=== PATIENT | male | born 1930 | race Caucasian/White ===

== ENCOUNTER 2018-03-10 08:34 | Inpatient (IN) ==
--- NOTE | 2018-03-10 09:14 | ED ---
HPI General Chief Complaint: Fall Stated Complaint: Evac/fall Time Seen by Provider: 03/10/18 08:56 Source: patient, EMS and RN notes reviewed Mode of arrival: EMS Limitations: other (poor historian) History of Present Illness HPI Narrative: 87 y/o male presents after he had a trip and fall on a curb when he was trying to go to [facility] for blood work for dizzy spells with black stools. He states he is on Eliquis but is not sure why he is on it. He states today he did fall and hit his head but he did not black out. He notes a cut to the top of his head. He denies other pain from the fall. He denies any active dizziness at this moment but does note that he has been having black stools. Quality pain is throbbing. Severity is moderate. Pain is worse with movement. He denies other modifying factors. He states his doctor sent him to get the workup. Related Data Home Medications Medication Instructions Recorded Confirmed Advair Diskus 250 mcg PO BID 03/10/18 03/10/18 Areds 2 tab PO BID 03/10/18 Brogan Thyroid 120 mg PO DAILY 03/10/18 03/10/18 Eliquis 2.5 mg PO BID 03/10/18 03/10/18 Glucosamine Chondroitin PLUS 1,500 mg PO BID 03/10/18 03/10/18 Klor-Con 10 meq PO HS 03/10/18 03/10/18 Vitamin B-12 2,500 mcg PO DAILY 03/10/18 03/10/18 Vitamin D3 2,000 mcg PO DAILY 03/10/18 03/10/18 atorvastatin 40 mg PO HS 03/10/18 03/10/18 fish [id number]-vit C-vit E 1,200 mg PO DAILY 03/10/18 03/10/18 fluoxetine 20 mg PO HS 03/10/18 03/10/18 furosemide 40 mg PO DAILY 03/10/18 03/10/18 metformin 500 mg PO BID 03/10/18 03/10/18 montelukast 10 mg PO HS 03/10/18 03/10/18 Allergies Allergy/AdvReac Type Severity Reaction Status Date / Time adhesive Allergy Severe RASH Unverified 03/10/18 09:29 bee venom protein (honey bee) Allergy Severe Anaphylaxis Unverified 03/10/18 09: 29 Review of Systems ROS: all other systems reviewed are negative PMFSH History History Provided By: Patient (States he has a lot of medical history but he does not know at all. He will have his friend get his medication list) Medical History Medical History History of COPD (Acute) History of asthma (Acute) History of hypothyroidism (Acute) Hx of chronic congestive heart failure (Acute) Hx of diabetes mellitus (Acute) Hx of hyperlipidemia (Acute) Hx of primary hypertension (Acute) Surgical History Surgical History Hx of heart surgery (Acute) Social History Social History Substance History: No History of Abuse Second Hand Smoke Exposure: No Smoking Status: Former smoker How Often Do You Have a Drink Containing Alcohol: Never Exam Narrative Exam Narrative: GENERAL: 87 y/o male in no apparent distress SKIN: Focused skin assessment warm/dry. HEAD: laceration noted to right forehead laterally, Normocephalic. EYES: Pupils equal and round. No scleral icterus. No injection or drainage. ENT: No nasal bleeding or discharge. Mucous membranes pink and moist. NECK: Trachea midline. No JVD. c-collar placed CARDIOVASCULAR: irregular rate and rhythm. RESPIRATORY: No accessory muscle use. Clear to auscultation. Breath sounds equal bilaterally. GASTROINTESTINAL: Abdomen soft, non-tender, nondistended. MUSCULOSKELETAL: No obvious deformities. No clubbing. No cyanosis. mild edema bilaterally. Abrasion to right knee without tenderness, abrasion to right elbow with small amount of pain otherwise no pain noted to extremities NEUROLOGICAL: Awake. Motor grossly within normal limits. Normal speech. RECTAL EXAM: Performed with credit union teller and after permission. No external hemorrhoid or fissure, stool is dark green, non-bloody. PSYCHIATRIC: Appropriate mood and affect; insight and judgment normal. Procedures Hemaprompt Stool Procedural Steps Taken: specimen placed in appropriate test area, developer placed on specimen and control areas and controls appropriately positive and negative Hemaprompt Stool Result: positive Laceration Laceration 1: Site: face Side (If applicable): right Description: linear Depth: simple, single layer Anesthetic used: lidocaine 2% and with epi Anesthesia technique:: local infiltration Amount (mL): 2 Pre-repair:: wound explored, irrigated extensively, deep structures intact and extensive debridement Skin layer closed with: prolene Size (cm): 4-0 Number of sutures:: 3 Technique:: simple, interrupted Course Reevaluation(s) Reevaluation #1: Patient's hemoglobin is 7.1. Given bleeding and symptomatic will start with 1 unit of blood to be given and will admit to the hospital for further care. Laceration to be repaired Reevaluation #2: Patient updated and agrees to admission Consultations Consultation #1: terrence with dr rojas agrees to admit Initial Documented Vital Signs Temperature 98.6 F 03/10/18 09:30 Pulse Rate 63 03/10/18 09:30 Respiratory Rate 16 03/10/18 09:30 Blood Pressure 138/49 L 03/10/18 09:30 Pulse Oximetry 97 03/10/18 09:30 Last Documented Vital Signs Temperature 98.6 F 03/10/18 09:30 Pulse Rate 63 03/10/18 09:30 Respiratory Rate 16 03/10/18 09:30 Blood Pressure 138/49 L 03/10/18 09:30 Pulse Oximetry 97 03/10/18 09:30 Medical Decision Making MDM Narrative Medical decision making narrative: We will check blood work, trauma imaging and reevaluate. Patient will likely need admission for GI bleed Medical Screen Exam Complete: Yes Emergency Medical Condition: Yes Differential Diagnosis Differential Diagnosis: Anemia, renal failure, fracture, bleed Lab Data Lab results reviewed: Yes I reviewed the patient's lab results. Result diagrams: 03/10/18 09:50 03/10/18 09:50 Lab Results 03/10/18 03/10/18 03/10/18 Range/Units 09:50 09:50 09:50 CBC w Diff Slide review pending WBC 8.8 (4.0-11.0) th/mm3 RBC 2.26 L (4.50-5.90) mil/mm3 Hgb 7.1 L (13.0-17.0) gm/dL Hct 22.5 L (39.0-51.0) % MCV 99.2 (80.0-100.0) fL MCH 31.5 (27.0-34.0) pg MCHC 31.8 L (32.0-36.0) % RDW 22.8 H (11.6-17.2) % Plt Count 207 (150-450) th/mm3 MPV 7.3 (7.0-11.0) fL Neut % (Auto) 81.6 H (16.0-70.0) % Lymph % (Auto) 9.3 (9.0-44.0) % Storey % (Auto) 6.6 (0.0-8.0) % Eos % (Auto) 1.9 (0.0-4.0) % Baso % (Auto) 0.6 (0.0-2.0) % Neut # (Auto) 7.1 (1.8-7.7) th/mm3 Lymph # (Auto) 0.8 L (1.0-4.8) th/mm3 Storey # (Auto) 0.6 (0.0-0.9) th/mm3 Eos # (Auto) 0.2 (0.0-0.4) th/mm3 Baso # (Auto) 0.1 (0.0-0.2) th/mm3 Differential Comment . PT 11.8 H (9.8-11.6) sec INR 1.2 Ratio APTT 27.2 (23.4-31.7) sec Sodium 141 (136-145) meq/L Potassium 4.2 (3.5-5.1) meq/L Chloride 110 H (98-107) meq/L Carbon Dioxide 23.7 (21.0-32.0) meq/L Anion Gap 7 (5-15) meq/L BUN 36 H (7-18) mg/dL Creatinine 1.60 H (0.60-1.30) mg/dL Estimated GFR 41 L (>89) mL/min Random Glucose 132 H (74-106) mg/dL Calcium 7.8 L (8.5-10.1) mg/dL Magnesium 2.5 (1.5-2.5) mg/dL Total Bilirubin 1.7 H (0.2-1.0) mg/dL AST 20 (15-37) U/L ALT 23 (12-78) U/L Alkaline Phosphatase 59 (45-117) U/L Total Protein 6.3 L (6.4-8.2) g/dL Albumin 2.9 L (3.4-5.0) g/dL Imaging Data Attestation: I personally reviewed and interpreted this imaging study as follows : Radiologist's impression: Chest X-Ray 03/10/18 09:06 CONCLUSION: No acute disease Cervical Spine CT 03/10/18 09:07 CONCLUSION: 1. No fracture or subluxation Head CT 03/10/18 09:07 CONCLUSION: No acute intracranial findings . Pelvis X-Ray 03/10/18 09:07 CONCLUSION: No definite acute bony injury Elbow X-Ray 03/10/18 09:15 CONCLUSION: 1. No acute fracture, dislocation or elbow joint effusion. 2. Olecranon spurring. 3. Degenerative changes involving the right elbow joint. Discharge Plan Discharge Disposition Patient Disposition: ED Admit(ED Internal Use Only) Discharge Order Discharge Orders: ED Use Only Admit Order (Routine); Ordered 03/10/18 Ordered By: Lizzie Alatorre Discharge Details Diagnosis: Acute GI bleeding, Fall, Facial laceration Physicians Team ED Provider: Lizzie Alatorre Primary Care Provider: Raudel Rojas Attending Provider: Raudel Rojas Status ED Status: Admitted Patient
--- NOTE | 2018-03-10 09:56 | CT ---
EXAM DATE: 03/10/2018 9:47 AM EST AGE/SEX: 87 years / Male INDICATIONS: Trauma. Tripped and fell and hit head. Laceration to right forehead. CLINICAL DATA: This is the patient's initial encounter. Patient reports that signs and symptoms have been present for 1 day and indicates a pain score of 2/10. MEDICAL/SURGICAL HISTORY: None. None. RADIATION DOSE: 26.63 CTDI (mGy) COMPARISON: No prior exams available for comparison. TECHNIQUE: Contiguous axial images were obtained using helical multirow detector technique. The vol umetric data was post-processed with multiplanar reconstruction in oblique axial, sagittal, and coron al planes. Using automated exposure control and adjustment of the mA and/or kV according to patient s ize, radiation dose was kept as low as reasonably achievable to obtain optimal diagnostic quality juan ges. DICOM format image data is available electronically for review and comparison. FINDINGS: Vertebrae: Normal vertebral body height. Multilevel degenerative changes. Bridging anterior endplate osteophytes C3-C7. Alignment: Normal. No subluxation. C2-3: The bony spinal canal is normal in size. No evidence of disc bulge or herniation. The neural foramina are bilaterally patent. C3-4: The bony spinal canal is normal in size. No evidence of disc bulge or herniation. Right neura l foramen patent. Uncovertebral spurring causes moderate narrowing left neural foramen.. C4-5: Small generalized posterior disc osteophyte complex without canal stenosis. The neural forami na are bilaterally patent. C5-6: Small generalized posterior disc osteophyte complex without canal stenosis. The neural forami na are bilaterally patent. C6-7: The bony spinal canal is normal in size. No evidence of disc bulge or herniation. The neural foramina are bilaterally patent. C7-T1: The bony spinal canal is normal in size. No evidence of disc bulge or herniation. The neura l foramina are bilaterally patent. CONCLUSION: 1. No fracture or subluxation Electronically signed by: Leonid Stevens MD Board Certified Radiologist 03/10/2018 9:55 AM EST
--- NOTE | 2018-03-10 09:57 | CT ---
EXAM DATE: 03/10/2018 9:44 AM EST AGE/SEX: 87 years / Male INDICATIONS: Trauma. Tripped and fell and hit head. Laceration to right forehead. CLINICAL DATA: This is the patient's initial encounter. Patient reports that signs and symptoms have been present for 1 day and indicates a pain score of 5/10. MEDICAL/SURGICAL HISTORY: None. None. RADIATION DOSE: 63.93 CTDI (mGy) COMPARISON: No prior exams available for comparison. TECHNIQUE: CT of the head without contrast. Using automated exposure control and adjustment of the mA and/or kV according to patient size, radiation dose was kept as low as reasonably achievable to ob tain optimal diagnostic quality images. DICOM format image data is available electronically for revi ew and comparison. FINDINGS: Cerebrum: The ventricles are normal for age. No evidence of midline shift, mass lesion, hemorrhage or acute infarction. No extraaxial fluid collections are seen. Posterior Fossa: The cerebellum and brainstem are intact. The 4th ventricle is midline. The cerebe llopontine angle is unremarkable. Extracranial: The visualized portion of the orbits is intact. Skull: The calvaria is intact. No evidence of skull fracture. CONCLUSION: No acute intracranial findings . Electronically signed by: Yaniv Byers MD Board Certified Radiologist 03/10/2018 9:55 AM EST
[2018-03-10 10:15] LABS: Baso # (Auto) 0.1 th/mm3 (0.0-0.2); Baso % (Auto) 0.6 % (0.0-2.0); Eos # (Auto) 0.2 th/mm3 (0.0-0.4); Eos % (Auto) 1.9 % (0.0-4.0); Hematocrit 22.5 % (39.0-51.0); Hemoglobin 7.1 gm/dL (13.0-17.0); Lymph # (Auto) 0.8 th/mm3 (1.0-4.8); Lymph % (Auto) 9.3 % (9.0-44.0); Mean Corpuscular HGB Conc 31.8 % (32.0-36.0); Mean Corpuscular Hemoglobin 31.5 pg (27.0-34.0); Mean Corpuscular Volume 99.2 fL (80.0-100.0); Mean Platelet Volume 7.3 fL (7.0-11.0); Mono # (Auto) 0.6 th/mm3 (0.0-0.9); Mono % (Auto) 6.6 % (0.0-8.0); Neut # (Auto) 7.1 th/mm3 (1.8-7.7); Neut % (Auto) 81.6 % (16.0-70.0); Platelet Count 207 th/mm3 (150-450); Red Blood Count 2.26 mil/mm3 (4.50-5.90); Red Cell Distribution Width 22.8 % (11.6-17.2); White Blood Count 8.8 th/mm3 (4.0-11.0)
--- NOTE | 2018-03-10 10:15 | XR ---
EXAM DATE: 03/10/2018 10:11 AM EST AGE/SEX: 87 years / Male INDICATIONS: Fall, chest pain. CLINICAL DATA: This is the patient's initial encounter. Patient reports that signs and symptoms have been present for 1 day and indicates a pain score of 1/10. MEDICAL/SURGICAL HISTORY: None. CABG. COMPARISON: POI, XR CHEST PA AND LAT, 09/20/2017. . FINDINGS: A single AP view of the chest demonstrates the lungs to be symmetrically aerated without evidence of mass, infiltrate or effusion. The cardiomediastinal contours are unremarkable. Osseous structures a re intact. CONCLUSION: No acute disease Electronically signed by: Yaniv Byers MD Board Certified Radiologist 03/10/2018 10:14 AM EST
--- NOTE | 2018-03-10 10:16 | XR ---
EXAM DATE: 03/10/2018 10:12 AM EST AGE/SEX: 87 years / Male INDICATIONS: Fall, pelvic pain. CLINICAL DATA: This is the patient's initial encounter. Patient reports that signs and symptoms have been present for 1 day and indicates a pain score of 1/10. MEDICAL/SURGICAL HISTORY: None. None. COMPARISON: No prior exams available for comparison. FINDINGS: Severe degenerative changes are present in the hips bilaterally and in the lumbosacral spine. No defi nite evidence of fracture or bony dislocation. Prominent atherosclerotic vascular calcifications note d. CONCLUSION: No definite acute bony injury Electronically signed by: Yaniv Byers MD Board Certified Radiologist 03/10/2018 10:15 AM EST
[2018-03-10 10:18] LABS: Chloride 110 meq/L (98-107); Potassium 4.2 meq/L (3.5-5.1); Sodium 141 meq/L (136-145)
[2018-03-10 10:21] LABS: Calcium 7.8 mg/dL (8.5-10.1)
[2018-03-10 10:22] LABS: Activated Partial Thrombo Time 27.2 sec (23.4-31.7); Albumin 2.9 g/dL (3.4-5.0); Anion Gap 7 meq/L (5-15); Blood Urea Nitrogen 36 mg/dL (7-18); Carbon Dioxide 23.7 meq/L (21.0-32.0); Glucose,Random 132 mg/dL (74-106); INR 1.2 Ratio; Magnesium 2.5 mg/dL (1.5-2.5); Prothrombin Time 11.8 sec (9.8-11.6)
[2018-03-10 10:25] LABS: Alanine Aminotransferase 23 U/L (12-78); Aspartate Aminotransferase 20 U/L (15-37); Glomerular Filtration Rate 41 mL/min (>89)
[2018-03-10 10:26] LABS: Total Protein 6.3 g/dL (6.4-8.2)
--- NOTE | 2018-03-10 10:26 | XR ---
EXAM DATE: 03/10/2018 10:10 AM EST AGE/SEX: 87 years / Male INDICATIONS: Fall, right elbow pain and abrasion. CLINICAL DATA: This is the patient's initial encounter. Patient reports that signs and symptoms have been present for 1 day and indicates a pain score of 3/10. MEDICAL/SURGICAL HISTORY: None. None. COMPARISON: No prior exams available for comparison. FINDINGS: Olecranon spurring is noted. Degenerative changes are noted involving the right elbow joint. There is no acute fracture, dislocation or elbow joint effusion. CONCLUSION: 1. No acute fracture, dislocation or elbow joint effusion. 2. Olecranon spurring. 3. Degenerative changes involving the right elbow joint. Electronically signed by: Bud Braden MD Board Certified Radiologist 03/10/2018 10:25 AM EST
[2018-03-10 10:28] LABS: Alkaline Phosphatase 59 U/L (45-117)
[2018-03-10] MEDS ORDERED: Lidocaine 2%/Epinephrine 1:100,000 30 ML MDV INFILTRATN ONE (10:28)
[2018-03-10] MEDS: Pantoprazole Inj 80 MG in Sodium Chlor 0.9% Inj 100 ML IV.CONT SCH ×3 (10:40→21:00)
[2018-03-10] MEDS ORDERED: Acetaminophen 325 MG Tablet PO PRN (10:45)
[2018-03-10] MEDS ORDERED: Bisacodyl 10 MG Supp RECTAL PRN (10:45)
[2018-03-10] MEDS ORDERED: Lidocaine 2%/Epinephrine 1:100,000 Inj 20 ML Vial INFILTRATN ONE (10:45)
[2018-03-10 11:00] LABS: Ovalocytes 3+
[2018-03-10] MEDS ORDERED: Sodium Chlor 0.9% Inj 250 ML IV.SIG SCH (11:00)
--- NOTE | 2018-03-10 15:31 | P.HPFP ---
History of Present Illness Service: family medicine Primary Care Physician: Raudel Vazquez DO Chief Complaint: fall with head injury and anemia - Diagnosis (1) Acute GI bleeding (2) Hx of heart surgery Inpatient Certification: I certify that the inpatient services were ordered in accordance with Medicare regulations governing the order. This includes certification that hospital inpatient services are reasonable and necessary and in the case of services not specified as inpatient-only under 42 CFR 419.22(n), that they are appropriately provided as inpatient services in accordance to with the 2-midnight benchmark under 43 CFR 412.3(e) Estimated Total Length of Stay (Days): 3 Plans for Post Hospital Care: Home Review of Systems Constitutional: Reports weakness Cardiovascular: Reports fainting PMFSH - History History Provided By: Patient (States he has a lot of medical history but he does not know at all. He will have his friend get his medication list) - Medical History Medical History: Medical History (Last Reviewed 03/10/18 @ 15:23 by Raudel Vazquez DO) History of COPD History of asthma History of hypothyroidism Hx of chronic congestive heart failure Hx of diabetes mellitus Hx of hyperlipidemia Hx of primary hypertension - Surgical History Surgical History: Surgical History (Last Updated 03/10/18 @ 15:23 by Raudel Vazquez DO) Hx of heart surgery (Acute) - Tobacco History Second Hand Smoke Exposure: No Tobacco Use In Past 30 Days: No Smoking Status: Former smoker - Alcohol History How Often Do You Have a Drink Containing Alcohol: Never - Substance Use History Substance History: No History of Abuse - Immunization History Tetanus Immunization: Unsure Medications and Allergies Active Medications: Active Medications Acetaminophen (Tylenol) 650 mg PO Q4H PRN PRN Reason: Temp > 100.4 Al Hydroxide/Mg Hydroxide (Milk Of Magnesia Liq) 30 ml PO Q12H PRN PRN Reason: Mild Constipation Bisacodyl (Dulcolax Supp) 10 mg RECTAL DAILY PRN PRN Reason: SEVERE CONSITIPATION Sodium Chloride (Ns Inj) 250 mls @ 15 mls/hr IV.SIG ONCE ARINA Stop: 03/11/18 03:39 Last Admin: 03/10/18 15:15 Dose: 15 mls/hr Pantoprazole Sodium 80 mg/ (Sodium Chloride) 100 mls @ 10 mls/hr IV.CONT CONT ARINA Last Admin: 03/10/18 10:40 Dose: 10 mls/hr Lactulose (Lactulose Liq) 30 ml PO DAILY PRN PRN Reason: SEVERE CONSITIPATION Non-Formulary Medication (Monroe Thyroid) 120 mg PO DAILY ARINA Non-Formulary Medication (Atorvastatin) 40 mg PO HS ARINA Non-Formulary Medication (Fluoxetine) 20 mg PO HS ARINA Non-Formulary Medication (Furosemide) 40 mg PO DAILY ARINA Non-Formulary Medication (Glucosamine Chondroitin Plus) 1,500 mg PO BID ARINA Non-Formulary Medication (Montelukast) 10 mg PO HS ARINA Non-Formulary Medication (Vitamin B-12) 2,500 mcg PO DAILY ARINA Non-Formulary Medication (Vitamin D3) 2,000 mcg PO DAILY ARINA Non-Formulary Medication (Advair Diskus) 250 mcg PO BID ARINA Non-Formulary Medication (Klor-Con) 10 meq PO HS ARINA Ondansetron HCl (Zofran Inj) 4 mg IV.PUSH Q6H PRN PRN Reason: NAUSEA OR VOMITING Senna/Docusate Sodium (Chole-Colace) 1 tab PO BID [facility] Sennosides (Senokot) 17.2 mg PO Q12H PRN PRN Reason: Moderate Constipation Sodium Chloride (Ns Flush) 2 ml IV.FLUSH PRN PRN PRN Reason: FLUSH AFTER USING IV ACCESS Sodium Chloride (Ns Flush) 2 ml IV.FLUSH PRN PRN PRN Reason: FLUSH AFTER USING IV ACCESS Sodium Chloride (Ns Flush) 2 ml IV.FLUSH BID ARINA Sodium Chloride (Ns Flush) 2 ml IV.FLUSH PRN PRN PRN Reason: FLUSH AFTER USING IV ACCESS Allergies Allergy/AdvReac Type Severity Reaction Status Date / Time adhesive Allergy Severe RASH Unverified 03/10/18 09:29 bee venom protein (honey bee) Allergy Severe Anaphylaxis Unverified 03/10/18 09: 29 Home Medications Medication Instructions Recorded Confirmed Type Advair Diskus 250 mcg PO BID 03/10/18 03/10/18 History Areds 2 tab PO BID 03/10/18 History Monroe Thyroid 120 mg PO DAILY 03/10/18 03/10/18 History Eliquis 2.5 mg PO BID 03/10/18 03/10/18 History Glucosamine Chondroitin PLUS 1,500 mg PO BID 03/10/18 03/10/18 History Klor-Con 10 meq PO HS 03/10/18 03/10/18 History Vitamin B-12 2,500 mcg PO DAILY 03/10/18 03/10/18 History Vitamin D3 2,000 mcg PO DAILY 03/10/18 03/10/18 History atorvastatin 40 mg PO HS 03/10/18 03/10/18 History fish ahm-lzuip-2-vit C-vit E 1,200 mg PO DAILY 03/10/18 03/10/18 History fluoxetine 20 mg PO HS 03/10/18 03/10/18 History furosemide 40 mg PO DAILY 03/10/18 03/10/18 History metformin 500 mg PO BID 03/10/18 03/10/18 History montelukast 10 mg PO HS 03/10/18 03/10/18 History Exam Vital signs: Vital Signs 03/10/18 09:30 03/10/18 11:00 03/10/18 15:11 Temperature 98.6 F 98.9 F Pulse Rate 63 64 51 L Respiratory Rate 16 16 16 Blood Pressure 138/49 L 118/62 136/54 L Pulse Oximetry 97 95 100 Intake & Output 03/09/18 03/10/18 03/10/18 18:59 06:59 18:59 Output Total 300 / 300 Balance -300 / -300 Output: Urine 300 / 300 Other: # Voids 1 - Constitutional no acute distress - Routine HEENT Exam Head: Present: laceration Eye: Present: EOMI, PERRL ENT: Present: mucous membranes moist - Routine Neck Exam Present: supple - Routine Respiratory Exam Present: CTA bilaterally - Routine Cardiovascular Exam Present: RRR - Routine Abdominal Exam Present: soft Results - Labs Result diagrams: 03/10/18 09:50 03/10/18 09:50 Abnormal lab results 03/10/18 03/10/18 03/10/18 Range/Units 09:50 09:50 09:50 RBC 2.26 L (4.50-5.90) mil/mm3 Hgb 7.1 L (13.0-17.0) gm/dL Hct 22.5 L (39.0-51.0) % MCHC 31.8 L (32.0-36.0) % RDW 22.8 H (11.6-17.2) % Neut % (Auto) 81.6 H (16.0-70.0) % Lymph # (Auto) 0.8 L (1.0-4.8) th/mm3 Ovalocytes 3+ H (None) Keratocytes Occ H (None) PT 11.8 H (9.8-11.6) sec Chloride 110 H (98-107) meq/L BUN 36 H (7-18) mg/dL Creatinine 1.60 H (0.60-1.30) mg/dL Estimated GFR 41 L (>89) mL/min Random Glucose 132 H (74-106) mg/dL Calcium 7.8 L (8.5-10.1) mg/dL Total Bilirubin 1.7 H (0.2-1.0) mg/dL B-Natriuretic Peptide (0-100) pg/mL Total Protein 6.3 L (6.4-8.2) g/dL Albumin 2.9 L (3.4-5.0) g/dL MTS Gel Crossmatch 03/10/18 03/10/18 Range/Units 09:50 12:47 RBC (4.50-5.90) mil/mm3 Hgb (13.0-17.0) gm/dL Hct (39.0-51.0) % MCHC (32.0-36.0) % RDW (11.6-17.2) % Neut % (Auto) (16.0-70.0) % Lymph # (Auto) (1.0-4.8) th/mm3 Ovalocytes (None) Keratocytes (None) PT (9.8-11.6) sec Chloride (98-107) meq/L BUN (7-18) mg/dL Creatinine (0.60-1.30) mg/dL Estimated GFR (>89) mL/min Random Glucose (74-106) mg/dL Calcium (8.5-10.1) mg/dL Total Bilirubin (0.2-1.0) mg/dL B-Natriuretic Peptide 206 H (0-100) pg/mL Total Protein (6.4-8.2) g/dL Albumin (3.4-5.0) g/dL MTS Gel Crossmatch See Detail Short CBC 03/10/18 Range/Units 09:50 WBC 8.8 (4.0-11.0) th/mm3 Hgb 7.1 L (13.0-17.0) gm/dL Hct 22.5 L (39.0-51.0) % Plt Count 207 (150-450) th/mm3 BMP 03/10/18 09:50 Sodium 141 Potassium 4.2 Chloride 110 H Carbon Dioxide 23.7 BUN 36 H Creatinine 1.60 H Calcium 7.8 L Liver Function 03/10/18 Range/Units 09:50 Total Bilirubin 1.7 H (0.2-1.0) mg/dL AST 20 (15-37) U/L ALT 23 (12-78) U/L Alkaline Phosphatase 59 (45-117) U/L Albumin 2.9 L (3.4-5.0) g/dL - Imaging Impressions Chest X-Ray 03/10/18 09:06 CONCLUSION: No acute disease Cervical Spine CT 03/10/18 09:07 CONCLUSION: 1. No fracture or subluxation Head CT 03/10/18 09:07 CONCLUSION: No acute intracranial findings . Pelvis X-Ray 03/10/18 09:07 CONCLUSION: No definite acute bony injury Elbow X-Ray 03/10/18 09:15 CONCLUSION: 1. No acute fracture, dislocation or elbow joint effusion. 2. Olecranon spurring. 3. Degenerative changes involving the right elbow joint. Caprini VTE Risk Assessment Caprini VTE Risk Assessment: No/Low Risk (score <= 1) Caprini Risk Assessment Model: Point Value = 1 Point Value = 2 Point Value = 3 Point Value = 5 Age 41-60 Minor surgery BMI > 25 kg/m2 Swollen legs Varicose veins or History of unexplained or recurrent spontaneous Oral contraceptives or hormone replacement Sepsis (< 1 month) Serious lung disease, including pneumonia (< 1 month) Abnormal pulmonary function Acute myocardial infarction Congestive heart failure (< 1 month) History of inflammatory bowel disease Medical patient at bed rest Age 61-74 Arthroscopic surgery Major open surgery (> 45 min) Laparoscopic surgery (> 45 min) Malignancy Confined to bed (> 72 hours) Immobilizing plaster cast Central venous access Age >= 75 History of VTE Family history of VTE Factor V Leiden Prothrombin [id number] Lupus anticoagulant Anticardiolipin antibodies Elevated serum homocysteine Heparin-induced thrombocytopenia Other congenital or acquired thrombophilia Stroke (< 1 month) Elective arthroplasty Hip, pelvis, or leg fracture Acute spinal cord injury (< 1 month) Prophylaxis Regimen: Total Risk Factor Score Risk Level Prophylaxis Regimen 0-1 Low Early ambulation 2 Moderate Order ONE of the following: *Sequential Compression Device (SCD) *Heparin 5000 units SQ BID 3-4 Higher Order ONE of the following medications: *Heparin 5000 units SQ TID *Enoxaparin/Lovenox 40 mg SQ daily (WT < 150 kg, CrCl > 30 mL/min) *Enoxaparin/Lovenox 30 mg SQ daily (WT < 150 kg, CrCl > 10-29 mL/min) *Enoxaparin/Lovenox 30 mg SQ BID (WT < 150 kg, CrCl > 30 mL/min) AND/OR *Sequential Compression Device (SCD) 5 or more Highest Order ONE of the following medications: *Heparin 5000 units SQ TID (Preferred with Epidurals) *Enoxaparin/Lovenox 40 mg SQ daily (WT < 150 kg, CrCl > 30 mL/min) *Enoxaparin/Lovenox 30 mg SQ daily (WT < 150 kg, CrCl > 10-29 mL/min) *Enoxaparin/Lovenox 30 mg SQ BID (WT < 150 kg, CrCl > 30 mL/min) AND *Sequential Compression Device (SCD) Assessment and Plan - Assessment (1) Acute GI bleeding Code(s): K92.2 - Gastrointestinal hemorrhage, unspecified Status: Acute (2) Hx of heart surgery Code(s): Z98.890 - Other specified postprocedural states Status: Acute - Assessment and Plan consult cardiology re coag with bovine valve replacement Discussed Condition With: patient and son
--- NOTE | 2018-03-10 15:35 | ECG ---
Date Performed: 03/10/2018 Time Performed: 09:13:36 PTAGE: 87 years EKG: ATRIAL FIBRILLATION LEFT BUNDLE BRANCH BLOCK ABNORMAL ECG NO PREVIOUS TRACING DOCTOR: Leon Cifuentes Interpretating Date/Time 03/10/2018 15:33:18
[2018-03-10 17:23] LABS: Baso # (Auto) 0.1 th/mm3 (0.0-0.2); Baso % (Auto) 0.8 % (0.0-2.0); Eos # (Auto) 0.2 th/mm3 (0.0-0.4); Eos % (Auto) 2.2 % (0.0-4.0); Hematocrit 22.1 % (39.0-51.0); Hemoglobin 7.3 gm/dL (13.0-17.0); Lymph # (Auto) 1.1 th/mm3 (1.0-4.8); Lymph % (Auto) 14.7 % (9.0-44.0); Mean Corpuscular HGB Conc 33.1 % (32.0-36.0); Mean Corpuscular Volume 96.9 fL (80.0-100.0); Mean Platelet Volume 7.9 fL (7.0-11.0); Mono # (Auto) 0.6 th/mm3 (0.0-0.9); Mono % (Auto) 7.5 % (0.0-8.0); Neut # (Auto) 5.8 th/mm3 (1.8-7.7); Neut % (Auto) 74.8 % (16.0-70.0); Platelet Count 205 th/mm3 (150-450); Red Blood Count 2.28 mil/mm3 (4.50-5.90); Red Cell Distribution Width 22.4 % (11.6-17.2); White Blood Count 7.8 th/mm3 (4.0-11.0)
[2018-03-10 17:32] LABS: Calcium 7.7 mg/dL (8.5-10.1); Carbon Dioxide 23.1 meq/L (21.0-32.0)
--- NOTE | 2018-03-10 18:07 | MB ---
cc: Austin Castaneda MD,Austin Vazquez,Raudel Sainz DATE: 03/10/2018 This is a patient of Dr. Raudel Vazquez. REASON FOR CONSULTATION: Melena and anemia. HISTORY OF PRESENT ILLNESS: Mr. Gallagher is an 87-year-old gentleman, basically presents to the emergency room after a fall, was found to have a low hemoglobin. He has been taking Eliquis for cardiac valve replacement. He says he basically just did not feel well. Bleeding was not a major issue for him. REVIEW OF SYSTEMS: No hematemesis or hematochezia. No abdominal pain. PAST MEDICAL HISTORY: COPD, asthma, hypothyroidism, congestive heart failure, diabetes, hyperlipidemia, hypertension. SURGICAL HISTORY: Previous cardiac surgery, previous colonoscopy in [place] many years ago. SOCIAL HISTORY: No tobacco, no alcohol reported. PHYSICAL EXAMINATION: GENERAL: A well-nourished man in no apparent distress. VITAL SIGNS: Stable. HEAD AND NECK: Anicteric sclerae. LUNGS: Bilateral air entry with rales. ABDOMEN: Soft, obese, nontender. No hepatosplenomegaly. Bowel sounds are present. CENTRAL NERVOUS SYSTEM: Nonfocal. RECTAL: Deferred at this time. LABORATORY DATA: Hemoglobin of 7.3 with an MCV of 96. INR is 1.2. Creatinine 1.60. IMPRESSION: Gastrointestinal bleeding with anemia. RECOMMENDATIONS: EGD, colonoscopy discussed with the patient and his son at the bedside. After much discussion, the patient has agreed to proceed with an EGD for tomorrow. He does not wish to do the bowel prep for the colonoscopy at this time. Transfuse as necessary. Eliquis is on hold. Protonix 40 mg daily. Further recommendations to follow. The patient can have clear liquid diet today and then n.p.o. after midnight. Thank you for this referral. Austin Castaneda MD HZ/vale , 05:28 PM , 05:32 PM
[2018-03-10] MEDS ORDERED: ADVAIR 250 MCG PO SCH (21:00)
[2018-03-10] MEDS ORDERED: KLOR CON 10 MEQ PO SCH (21:00)
[2018-03-10] MEDS ORDERED: [UNRECOGNIZED DRUG - OTHER] PO SCH (21:00)
[2018-03-10] MEDS ORDERED: MONTELUKAST 10 MG PO SCH (21:00)
[2018-03-10] MEDS ORDERED: FLUOXETINE 20 MG PO SCH (21:00)
[2018-03-10] MEDS ORDERED: ATORVASTATIN 40 MG PO SCH (21:00)
[2018-03-11] MEDS: Senna/Docusate Sodium 8.6/50 MG Tablet PO SCH ×3 (00:26→20:51)
[2018-03-11 00:35] LABS: Hemoglobin 8.1 gm/dL (13.0-17.0); Mean Corpuscular HGB Conc 32.4 % (32.0-36.0); Mean Corpuscular Hemoglobin 31.1 pg (27.0-34.0); Mean Corpuscular Volume 96.2 fL (80.0-100.0); Mean Platelet Volume 7.6 fL (7.0-11.0); Platelet Count 205 th/mm3 (150-450); White Blood Count 9.7 th/mm3 (4.0-11.0)
[2018-03-11] MEDS ORDERED: Pantoprazole Inj 80 MG in Sodium Chlor 0.9% Inj 100 ML IV.CONT SCH (04:00)
[2018-03-11] MEDS: Pantoprazole Inj 80 MG in Sodium Chlor 0.9% Inj 100 ML IV.CONT SCH ×2 (05:33→16:21)
[2018-03-11] MEDS: Furosemide 40 MG Tablet PO SCH (08:24)
[2018-03-11] MEDS: Thyroid 60 MG Tablet PO SCH (08:36)
--- NOTE | 2018-03-11 10:37 | GIPROC ---
[facility] [address] [place] [address], [id number] EGD PROCEDURE REPORT EXAM DATE: 03/11/2018 PATIENT NAME: Bruce Gallagher MR #: [id number] BIRTHDATE: 1930 ATTENDING: Trina Maciel MD ORDER #: [id number] FLUID PUMP OPERATOR: Paige Charles and Jenni Conti STATUS: inpatient INDICATIONS: The patient is a 87 yr old male here for an EGD due to melena PROCEDURE PERFORMED: EGD w/ biopsy MEDICATIONS: None and Per Anesthesia. TOPICAL ANESTHETIC: none CONSENT: The patient understands the risks and benefits of the procedure and understands that these risks include, but are not limited to: sedation, allergic reaction, infection, perforation and/or bleeding. Alternative means of evaluation and treatment include, among others: physical exam, x-rays, and/or surgical intervention. The patient elects to proceed with this endoscopic procedure. medical equipment was checked for proper function. Hand hygiene and appropriate measures for infection prevention was taken. After the risks, benefits and alternatives of the procedure were thoroughly explained, Informed consent was verified, confirmed and timeout was successfully executed by the treatment team. The patient was anesthetized with topical anesthesia and the Pentax EG-[id number] endoscope was introduced through the mouth and advanced to the third portion of the duodenum. Retroflexed views revealed no abnormalities The gastroscope was then slowly withdrawn and removed. Multiple random biopsies were performed using cold forceps. Sample sent for histology. STOMACH: There was acute moderate and erosive gastritis in the gastric antrum. Multiple biopsies were performed using cold forceps. Sample sent for histology. DUODENUM: A soft large nodules were located in the duodenal bulb. Multiple biopsies were performed using cold forceps. Sample sent for histology. ADVERSE EVENTS: There were no complications. IMPRESSIONS: 1. Esophagitis at mid esophagus, likely [place], biopsy taken 2. There was acute gastritis in the gastric antrum; multiple biopsies were performed 3. A large nodules was located in the duodenal bulb; multiple biopsies were performed 4. Retroflexed views revealed no abnormalities RECOMMENDATIONS: 1. Await biopsy results. Biopsy results will not be ready for 7-10 days. If you don't hear from us in two weeks, call our office for biopsy results. 2. Continue PPI 3. Avoid NSAIDS PATIENT CONDITION: stable DISPOSITION: Observation REPEAT EXAM: NONE Trina Maciel MD eSigned: Trina Maciel MD 03/11/2018 10:37 AM cc: PATIENT NAME: Bruce Gallagher MR#: [id number]
--- NOTE | 2018-03-11 11:26 | P.PNFP ---
Subjective Interval history: pt had quiet evening no new bleeding or falls Results - Labs Result diagrams: 03/11/18 00:25 03/10/18 17:00 Abnormal lab results 03/10/18 03/10/18 03/10/18 Range/Units 12:47 17:00 17:00 RBC 2.28 L (4.50-5.90) mil/mm3 Hgb 7.3 L (13.0-17.0) gm/dL Hct 22.1 L (39.0-51.0) % RDW 22.4 H (11.6-17.2) % Neut % (Auto) 74.8 H (16.0-70.0) % Chloride 112 H (98-107) meq/L BUN 32 H (7-18) mg/dL Creatinine 1.50 H (0.60-1.30) mg/dL Estimated GFR 44 L (>89) mL/min Random Glucose 110 H (74-106) mg/dL Calcium 7.7 L (8.5-10.1) mg/dL MTS Gel Crossmatch See Detail 03/11/18 Range/Units 00:25 RBC 2.60 L (4.50-5.90) mil/mm3 Hgb 8.1 L (13.0-17.0) gm/dL Hct 25.0 L (39.0-51.0) % RDW 23.0 H (11.6-17.2) % Neut % (Auto) (16.0-70.0) % Chloride (98-107) meq/L BUN (7-18) mg/dL Creatinine (0.60-1.30) mg/dL Estimated GFR (>89) mL/min Random Glucose (74-106) mg/dL Calcium (8.5-10.1) mg/dL MTS Gel Crossmatch Short CBC 03/10/18 03/11/18 Range/Units 17:00 00:25 WBC 7.8 9.7 (4.0-11.0) th/mm3 Hgb 7.3 L 8.1 L (13.0-17.0) gm/dL Hct 22.1 L 25.0 L (39.0-51.0) % Plt Count 205 205 (150-450) th/mm3 BMP 03/10/18 17:00 Sodium 142 Potassium 4.0 Chloride 112 H Carbon Dioxide 23.1 BUN 32 H Creatinine 1.50 H Calcium 7.7 L Physical Exam Vital signs: Vital Signs 03/10/18 15:11 03/10/18 15:15 03/10/18 15:20 Temperature 98.9 F 98.7 F 98.8 F Pulse Rate 51 L 52 L 51 L Respiratory Rate 16 16 16 Blood Pressure 136/54 L 121/51 L 120/73 Pulse Oximetry 100 100 97 03/10/18 15:25 03/10/18 15:30 03/10/18 15:40 Temperature 98.8 F 98.7 F 98.9 F Pulse Rate 53 L 52 L 55 L Respiratory Rate 16 16 16 Blood Pressure 120/72 125/49 L 120/73 Pulse Oximetry 97 98 03/10/18 15:44 03/10/18 15:45 03/10/18 16:00 Temperature 98.8 F 98.7 F 98.6 F Pulse Rate 54 L 50 L 56 L Respiratory Rate 16 16 16 Blood Pressure 120/74 118/57 L 111/64 Pulse Oximetry 99 97 98 03/10/18 16:30 03/10/18 17:00 03/10/18 17:30 Temperature 98.7 F 98.7 F 98.9 F Pulse Rate 50 L 52 L 52 L Respiratory Rate 16 16 16 Blood Pressure 114/52 L 113/62 118/65 Pulse Oximetry 98 95 99 03/10/18 18:00 03/10/18 19:21 03/10/18 20:55 Temperature 98.7 F 96.5 F L Pulse Rate 50 L 58 L 53 L Respiratory Rate 16 18 20 Blood Pressure 112/65 122/70 182/74 H Pulse Oximetry 99 97 99 03/10/18 21:21 03/10/18 22:58 03/11/18 00:25 Temperature 97.4 F L Pulse Rate 56 L 47 L 45 L Respiratory Rate 18 18 Blood Pressure 145/67 H Pulse Oximetry 96 100 03/11/18 04:00 03/11/18 04:30 03/11/18 08:00 Temperature 96.4 F L Pulse Rate 51 L 43 L 48 L Respiratory Rate 20 Blood Pressure 142/62 H Pulse Oximetry 98 99 03/11/18 09:00 03/11/18 10:09 03/11/18 10:38 Temperature 98.4 F 98.2 F Pulse Rate 48 L 60 65 Respiratory Rate 18 18 Blood Pressure 138/54 L 129/49 L Pulse Oximetry 96 100 03/11/18 10:55 03/11/18 11:13 Temperature 98.2 F Pulse Rate 50 L 52 L Respiratory Rate 18 18 Blood Pressure 123/55 L 103/55 L Pulse Oximetry 100 100 Intake & Output 03/10/18 03/11/18 03/11/18 18:59 06:59 18:59 Intake Total 760 / 760 Output Total 600 / 600 Balance -600 / -600 760 / 760 Weight 95 kg 95.1 kg Intake: IV 360 / 360 Protonix Inj 80 MG In NS Inj 300 / 300 100 ML @ 10 mls/hr IV.CONT CONT ARINA Rx#:[id number] NS Inj 250 ML @ 15 mls/hr IV. 60 / 60 SIG ONCE ARINA Rx#:[id number] Intake (Blood Product) Amt 400 / 400 Rbc As-3 Leukoreduced Unit 400 / 400 [id number] Output: Urine 600 / 600 Other: # Voids 1 1 Weight On Admission 95 kg - Constitutional no acute distress - Routine HEENT Exam Head: Present: laceration - Routine Cardiovascular Exam Present: murmur - Routine Abdominal Exam Present: soft, normoactive bowel sounds - Routine Extremities Exam Present: edema Assessment and Plan - Assessment (1) Acute GI bleeding Code(s): K92.2 - Gastrointestinal hemorrhage, unspecified Status: Acute (2) Hx of heart surgery Code(s): Z98.890 - Other specified postprocedural states Status: Acute - Assessment and Plan consult cardiology re coag with bovine valve replacement 03/11 gi consulted will haave endoscopy await caediology recomendations re coag
[2018-03-11] MEDS: Budesonide-Formoterol 160/4.5 MCG 6 GM Inhaler INH SCH ×2 (12:07→20:54)
--- NOTE | 2018-03-11 17:53 | MB ---
cc: Jim Rodriguez DATE: 03/11/2018 IMPRESSIONS: 1. Upper gastrointestinal bleed. The patient had endoscopy demonstrating esophagitis, gastritis and nodules in the duodenum. Multiple biopsies are pending. 2. Chronic atrial fibrillation, on Eliquis. 3. Valvular heart disease, status post aortic valve with a bioprosthetic device. 4. Chronic obstructive pulmonary disease. 5. Advanced age. 6. Dyslipidemia. 7. Hypertension. 8. Hypothyroidism. 9. History of asthma. RECOMMENDATIONS: 1. Would resume the patient's cardiac medications. 2. Transfuse to keep hematocrit greater than 25%. 3. Cautious rehydration. The patient has had a history of pulmonary venous hypertension and congestive heart failure. 4. At this point in time, I would hold Eliquis. Start this when okay with Gastroenterology. 5. High-dose PPI and the patient is on pantoprazole at this point in time intravenously. CLINICAL DATA: Mr. Gallagher is an 87-year-old male who was admitted to the hospital with complaints of black tarry stools, weakness, near syncope. He has had no chest pain. He denies any shortness of breath. He has a history of valvular heart disease and status post aortic valve replacement with a bioprosthetic valve. He has chronic atrial fibrillation, which is being treated with rate control and anticoagulation. He has never had previous GI bleeding prior to this admission to the hospital. He has no history of myocardial infarction, atherosclerotic heart disease. He did not have any coronary bypasses when he had his valve replacement surgery. He has no history of ventricular arrhythmias. He has no history of seizure, stroke or TIA. There is a history of asthma, history of heart failure. There is no previous history of GI bleeding or acid peptic disease. No history of liver or gallbladder disease. There is history of mild renal insufficiency. No history of cancer. No history of thyroid disease or DVT. He had a fall prompting admission. He had near syncope. He has had no anginal symptoms. He has had no lower extremity edema or shortness of breath. PHYSICAL EXAMINATION: GENERAL: Physical exam at this time demonstrates an alert, oriented male, who is breathing oxygen per CPAP mask. He is in no apparent distress. VITAL SIGNS: Blood pressure 129/49, heart rate 60-70 and irregularly irregular. HEENT: Anicteric sclerae. NECK: Jugular venous pressures are normal. LUNGS: Clear anteriorly and laterally. CARDIAC: There are distant heart sounds, irregularly irregular rhythm, 2/6 systolic ejection murmur. No gallops. ABDOMEN: Soft and nontender. The patient denies any recent history of abdominal pain, back pain, nausea or vomiting. EXTREMITIES: Free of cyanosis, clubbing, edema. LABORATORY DATA: A 12-lead EKG on admission demonstrated atrial fibrillation with a left bundle-branch block pattern and secondary ST-T changes. Recent hematocrit is 22.5, white cell count 8800, platelet count 207. Electrolytes 141. 4.2, 110, 24, with a BUN of 36, creatinine 1.6, glucose 132. Admitting INR 1.2, PTT 27.2. Chest x-ray: Postoperative changes otherwise clear. DISCUSSION: This is an 87-year-old male admitted to the hospital with GI bleed. He has valvular heart disease, is on Eliquis for chronic atrial fibrillation. RECOMMENDATIONS: As noted above. DO TRISTA Hernandez/patricia , 05:18 PM , 05:27 PM
[2018-03-11] MEDS: Montelukast 10 MG Tablet PO SCH (20:52)
[2018-03-11] MEDS: FLUoxetine 20 MG Capsule PO SCH (20:52)
[2018-03-12] MEDS: Pantoprazole Inj 80 MG in Sodium Chlor 0.9% Inj 100 ML IV.CONT SCH ×3 (02:26→23:04)
[2018-03-12] MEDS: Thyroid 60 MG Tablet PO SCH (08:23)
[2018-03-12] MEDS: Furosemide 40 MG Tablet PO SCH (08:24)
[2018-03-12] MEDS: Budesonide-Formoterol 160/4.5 MCG 6 GM Inhaler INH SCH ×2 (08:24→20:27)
[2018-03-12] MEDS: Senna/Docusate Sodium 8.6/50 MG Tablet PO SCH ×2 (08:25→20:26)
--- NOTE | 2018-03-12 12:07 | P.PNFP ---
Subjective Interval history: Patient tells me he is breathing well since CPAP brought in last night. He says he rested well last night and still feels unsteady. Cards and GI consults are pending. Results - Labs Result diagrams: 03/11/18 00:25 03/10/18 17:00 Physical Exam Vital signs: Vital Signs 03/11/18 12:00 03/11/18 16:00 03/11/18 17:50 Temperature 98 F 96.9 F L Pulse Rate 47 L 50 L 50 L Respiratory Rate 20 18 Blood Pressure 111/53 L 135/61 Pulse Oximetry 95 99 03/11/18 20:00 03/12/18 00:00 03/12/18 04:00 Temperature 97.9 F 98.1 F 98.3 F Pulse Rate 41 L 50 L 53 L Respiratory Rate 16 18 16 Blood Pressure 144/65 H 151/65 H 149/87 H Pulse Oximetry 97 98 97 03/12/18 08:00 03/12/18 09:00 03/12/18 09:08 Temperature 97.6 F Pulse Rate 54 L 57 L 57 L Respiratory Rate 21 Blood Pressure 195/81 H 181/77 H Pulse Oximetry 98 Intake & Output 03/11/18 03/12/18 03/12/18 18:59 06:59 18:59 Intake Total 960 / 960 100 / 100 240 / 240 Output Total 2 / 2 300 / 300 Balance 958 / 958 100 / 100 -60 / -60 Intake: IV 100 / 100 100 / 100 Protonix Inj 80 MG In NS Inj 100 / 100 100 / 100 100 ML @ 10 mls/hr IV.CONT CONT ARINA Rx#:[id number] Oral 860 / 860 240 / 240 Output: Urine 2 / 2 300 / 300 Other: # Voids 3 2 # Bowel Movements 1 - Constitutional no acute distress - Routine HEENT Exam Head: Present: normocephalic, laceration Eye: Present: PERRL - Routine Neck Exam Present: supple, full ROM - Routine Respiratory Exam Present: distant breath sounds, diminished air movement - Routine Cardiovascular Exam Present: RRR, S1, S2 - Routine Abdominal Exam Present: normoactive bowel sounds, tenderness, distended - Routine Extremities Exam Present: full ROM - Routine Skin Exam Present: intact - Routine Neurological Exam Present: alert, oriented X3 - Detailed Neurological Exam: Coma Scale Eye Opening: Spontaneous Verbal Response: Oriented Motor Response: Obey commands [place] Coma Scale Total: 15 - Routine Psychiatric Exam Present: normal affect, normal thought process Assessment and Plan - Assessment (1) Acute GI bleeding Code(s): K92.2 - Gastrointestinal hemorrhage, unspecified Status: Acute Plan: Hg up this adm and he denies BRBPR. GI eval is pending (2) Hx of heart surgery Code(s): Z98.890 - Other specified postprocedural states Status: Acute Plan: Cards consult requested on adm and it is pending. He denies CP. (3) Bradycardia Code(s): R00.1 - Bradycardia, unspecified Status: Acute Plan: HR dipping down into 30s. He is asymptomatic. - Assessment and Plan consult cardiology re coag with bovine valve replacement 03/11 gi consulted will haave endoscopy await caediology recomendations re coag 03/12/18 - Cards consult is pending and he is having bradycardia into the 30s. He is stable overnight with epigastric discomfort and GI consult is also pending. BP is elevated and I have added low dose amlodipine pending Cards eval.
[2018-03-12] MEDS: amLODIPine 5 MG Tablet PO SCH (13:36)
[2018-03-12] MEDS: Montelukast 10 MG Tablet PO SCH (20:27)
[2018-03-12] MEDS: FLUoxetine 20 MG Capsule PO SCH (20:27)
[2018-03-13] MEDS: Budesonide-Formoterol 160/4.5 MCG 6 GM Inhaler INH SCH ×2 (08:33→21:11)
[2018-03-13] MEDS: Senna/Docusate Sodium 8.6/50 MG Tablet PO SCH ×2 (08:33→21:10)
[2018-03-13] MEDS: Thyroid 60 MG Tablet PO SCH (08:33)
[2018-03-13] MEDS: Furosemide 40 MG Tablet PO SCH (08:33)
[2018-03-13] MEDS: amLODIPine 5 MG Tablet PO SCH (08:34)
--- NOTE | 2018-03-13 11:21 | P.PNFP ---
Subjective Interval history: He tells me the epigastric pain has improved and he was changed to oral PPI from IV today. He tells me he rested well last night. Results - Labs Result diagrams: 03/11/18 00:25 03/10/18 17:00 Abnormal lab results 03/10/18 Range/Units 12:47 MTS Gel Crossmatch See Detail Physical Exam Vital signs: Vital Signs 03/12/18 12:00 03/12/18 20:00 03/13/18 00:00 Temperature 98.2 F 97.4 F L 97.4 F L Pulse Rate 36 L 58 L 61 Respiratory Rate 21 20 20 Blood Pressure 120/67 175/73 H 134/73 Pulse Oximetry 96 98 96 03/13/18 04:00 03/13/18 08:00 Temperature 97.3 F L 96.2 F L Pulse Rate 58 L 53 L Respiratory Rate 20 18 Blood Pressure 129/60 133/62 Pulse Oximetry 98 98 Intake & Output 03/12/18 03/13/18 03/13/18 18:59 06:59 18:59 Intake Total 820 / 820 100 / 100 Output Total 1101 / 1101 500 / 500 Balance -281 / -281 -400 / -400 Weight 96.4 kg Intake: IV 100 / 100 100 / 100 Protonix Inj 80 MG In NS Inj 100 / 100 100 / 100 100 ML @ 10 mls/hr IV.CONT CONT ARINA Rx#:[id number] Oral 720 / 720 Output: Urine 1100 / 1100 500 / 500 Stool / Other: Date of Last Bowel Movement 03/12/18 - Constitutional no acute distress - Routine HEENT Exam Head: Present: normocephalic Eye: Present: PERRL, normal accommodation ENT: Present: mucous membranes moist - Routine Neck Exam Present: supple - Routine Respiratory Exam Present: CTA bilaterally - Routine Cardiovascular Exam Present: murmur, irregularly irregular - Routine Abdominal Exam Present: soft, tenderness Comments: epigastrium - Routine Extremities Exam Present: full ROM. Absent: cyanosis - Routine Skin Exam Present: intact - Routine Neurological Exam Present: alert, oriented X3 - Detailed Neurological Exam: Coma Scale Eye Opening: Spontaneous Verbal Response: Oriented Motor Response: Obey commands [place] Coma Scale Total: 15 - Routine Psychiatric Exam Present: normal affect, normal thought process Assessment and Plan - Assessment (1) Acute GI bleeding Code(s): K92.2 - Gastrointestinal hemorrhage, unspecified Status: Acute Plan: Hg up this adm and he denies BRBPR. GI eval noted (2) Hx of heart surgery Code(s): Z98.890 - Other specified postprocedural states Status: Acute Plan: Cards consult noted. He denies CP. (3) Bradycardia Code(s): R00.1 - Bradycardia, unspecified Status: Acute Plan: HR dipping down into 30s. He is asymptomatic. - Assessment and Plan consult cardiology re coag with bovine valve replacement 03/11 gi consulted will haave endoscopy await caediology recomendations re coag 03/12/18 - Cards consult is pending and he is having bradycardia into the 30s. He is stable overnight with epigastric discomfort and GI consult is also pending. BP is elevated and I have added low dose amlodipine pending Cards eval. 03/13/18 - GI noted PUD and doing better on PPI, now on oral meds. He is tolerating a diet and tells me pain is improved. Cards eval noted. BP better overnight with the addition of amlodipine.
[2018-03-13] MEDS: Montelukast 10 MG Tablet PO SCH (21:10)
[2018-03-13] MEDS: FLUoxetine 20 MG Capsule PO SCH (21:10)
[2018-03-14] MEDS: amLODIPine 5 MG Tablet PO SCH (09:28)
[2018-03-14] MEDS: Senna/Docusate Sodium 8.6/50 MG Tablet PO SCH ×2 (09:28→21:19)
[2018-03-14] MEDS: Furosemide 40 MG Tablet PO SCH (09:29)
[2018-03-14] MEDS: Budesonide-Formoterol 160/4.5 MCG 6 GM Inhaler INH SCH ×2 (09:33→21:19)
[2018-03-14] MEDS: Thyroid 60 MG Tablet PO SCH (11:20)
--- NOTE | 2018-03-14 11:49 | P.PNFP ---
Subjective Interval history: feeling better no obvious bleeding will have physical therapy ambulate and asses for home dc Results - Labs Result diagrams: 03/11/18 00:25 03/10/18 17:00 Physical Exam Vital signs: Vital Signs 03/13/18 12:00 03/13/18 16:00 03/13/18 20:00 Temperature 96.8 F L 98.0 F 98 F Pulse Rate 57 L 66 58 L Respiratory Rate 18 18 20 Blood Pressure 135/61 134/65 175/72 H Pulse Oximetry 97 97 100 03/14/18 00:00 03/14/18 03:41 03/14/18 04:00 Temperature 98.2 F 98.2 F Pulse Rate 59 L 66 46 L Respiratory Rate 20 20 Blood Pressure 101/48 L 101/48 L Pulse Oximetry 94 L 94 L 03/14/18 08:00 03/14/18 09:27 Temperature 96.5 F L Pulse Rate 65 Respiratory Rate 16 20 Blood Pressure 129/59 L Pulse Oximetry 98 Intake & Output 03/13/18 03/14/18 03/14/18 18:59 06:59 18:59 Intake Total 1130 / 1130 240 / 240 Output Total 200 / 200 Balance 1130 / 1130 40 / 40 Weight 97.7 kg Intake: IV 50 / 50 Protonix Inj 80 MG In NS Inj 50 / 50 100 ML @ 10 mls/hr IV.CONT CONT ARINA Rx#:[id number] Oral 1080 / 1080 240 / 240 Output: Urine 200 / 200 Other: # Voids 5 3 Date of Last Bowel Movement 03/12/18 03/12/18 # Bowel Movements 0 - Constitutional no acute distress, obese - Routine HEENT Exam Head: Present: normocephalic, atraumatic Eye: Present: EOMI, PERRL ENT: Present: mucous membranes moist - Routine Neck Exam Present: supple - Routine Respiratory Exam Present: CTA bilaterally - Routine Cardiovascular Exam Present: RRR - Routine Abdominal Exam Present: soft, tenderness Assessment and Plan - Assessment (1) Acute GI bleeding Code(s): K92.2 - Gastrointestinal hemorrhage, unspecified Status: Acute Plan: Hg up this adm and he denies BRBPR. GI eval noted (2) Hx of heart surgery Code(s): Z98.890 - Other specified postprocedural states Status: Acute Plan: Cards consult noted. He denies CP. (3) Bradycardia Code(s): R00.1 - Bradycardia, unspecified Status: Acute Plan: HR dipping down into 30s. He is asymptomatic. - Assessment and Plan consult cardiology re coag with bovine valve replacement 03/11 gi consulted will haave endoscopy await caediology recomendations re coag 03/12/18 - Cards consult is pending and he is having bradycardia into the 30s. He is stable overnight with epigastric discomfort and GI consult is also pending. BP is elevated and I have added low dose amlodipine pending Cards eval. 03/13/18 - GI noted PUD and doing better on PPI, now on oral meds. He is tolerating a diet and tells me pain is improved. Cards eval noted. BP better overnight with the addition of amlodipine. 03/14 vss afebrile will have PT eval fur dc home ck lab in am last hgb 8.1
[2018-03-14 13:42] LABS: Hematocrit 24.4 % (39.0-51.0); Hemoglobin 8.1 gm/dL (13.0-17.0); Mean Platelet Volume 7.4 fL (7.0-11.0); Platelet Count 174 th/mm3 (150-450); Red Blood Count 2.52 mil/mm3 (4.50-5.90); Red Cell Distribution Width 22.9 % (11.6-17.2); White Blood Count 10.1 th/mm3 (4.0-11.0)
--- NOTE | 2018-03-14 17:25 | P.PNGI ---
Subjective Interval history: Sitting in bed with CPAP. Feeling better, complaining of epigastric discomfort. EGD noted, biopsies pending.No further melanotic stool.Cardiology consult noted Physical Exam Vital signs: Vital Signs 03/13/18 20:00 03/14/18 00:00 03/14/18 03:41 Temperature 98 F 98.2 F 98.2 F Pulse Rate 58 L 59 L 66 Respiratory Rate 20 20 20 Blood Pressure 175/72 H 101/48 L 101/48 L Pulse Oximetry 100 94 L 94 L 03/14/18 04:00 03/14/18 08:00 03/14/18 09:27 Temperature 96.5 F L Pulse Rate 46 L 65 Respiratory Rate 16 20 Blood Pressure 129/59 L Pulse Oximetry 98 03/14/18 12:00 03/14/18 16:00 Temperature 97.5 F L 98.4 F Pulse Rate 51 L 52 L Respiratory Rate 20 12 Blood Pressure 146/65 H 175/77 H Pulse Oximetry 99 97 Intake & Output 03/13/18 03/14/18 03/14/18 18:59 06:59 18:59 Intake Total 1130 / 1130 240 / 240 Output Total 200 / 200 Balance 1130 / 1130 40 / 40 Weight 97.7 kg Intake: IV 50 / 50 Protonix Inj 80 MG In NS Inj 50 / 50 100 ML @ 10 mls/hr IV.CONT CONT ARINA Rx#:[id number] Oral 1080 / 1080 240 / 240 Output: Urine 200 / 200 Other: # Voids 5 3 Date of Last Bowel Movement 03/12/18 03/12/18 # Bowel Movements 0 - Constitutional no acute distress - Routine HEENT Exam Head: Present: normocephalic Eye: Present: EOMI ENT: Present: mucous membranes moist Comments: stitches above right eyebrow - Routine Neck Exam Present: supple - Routine Respiratory Exam Present: CTA bilaterally - Routine Cardiovascular Exam Present: RRR - Routine Abdominal Exam Present: soft - Routine Skin Exam Present: petechiae, ecchymosis - Routine Neurological Exam Present: alert, oriented X3 - Detailed Neurological Exam: Coma Scale Verbal Response: Oriented - Routine Psychiatric Exam Present: normal affect Results - Labs CBC & Chem 7: 03/14/18 13:32 03/10/18 17:00 Laboratory Results - last 24 hr 03/14/18 13:32 WBC 10.1 RBC 2.52 L Hgb 8.1 L Hct 24.4 L MCV 97.0 MCH 32.0 MCHC 33.0 RDW 22.9 H Plt Count 174 MPV 7.4 Assessment and Plan - Plan gi bleeding secondary duodenitis - hb stable -no active bleeding melena -resolved epigastric pain possible secondary gastritis, duodenitis Recommendations ppi advance diet ct abdomen/pelvis transfuse 1 more unit of prbc to maintain his hb around 9 ok for anticoagulation from gi point
[2018-03-14] MEDS ORDERED: Diatrizoate Meglum/Diatrizoate Sod Liq 9 ML UDC PO ONE (17:30)
[2018-03-14] MEDS: Montelukast 10 MG Tablet PO SCH (21:19)
[2018-03-14] MEDS: FLUoxetine 20 MG Capsule PO SCH (21:19)
--- NOTE | 2018-03-14 22:33 | CT ---
EXAM DATE: 03/14/2018 10:28 PM EST AGE/SEX: 87 years / Male INDICATIONS: Epigastric pain and blood in stool. CLINICAL DATA: This is the patient's initial encounter. Patient reports that signs and symptoms have been present for 3 days and indicates a pain score of 3/10. MEDICAL/SURGICAL HISTORY: Asthma. Chronic obstructive pulmonary disease. Congestive heart nancy lure. Diabetes. A-fib. Hypothyroidism. Hypertension. Dyslipidemia. . Heart surgery. RADIATION DOSE: 24.71 CTDI (mGy) COMPARISON: No prior exams available for comparison. TECHNIQUE: Multiple contiguous axial images were obtained through the abdomen. Images were obtained using multiple row detector helical technique. Using automated exposure control and adjustment of the mA and/or kV according to patient size, radiation dose was kept as low as reasonably achievable to o btain optimal diagnostic quality images. DICOM format image data is available electronically for rev iew and comparison. FINDINGS: Lower Lungs: There are small bilateral pleural effusions right greater than left. The patient is stat us post median sternotomy. The heart size is enlarged. Liver: The liver has a homogeneous density without space-occupying lesion. There is no dilation of th e biliary tree. The patient is status post cholecystectomy. Spleen: Homogeneous density without enlargement. Pancreas: Unremarkable without mass or calcification. Kidneys: Normal in size and shape. No evidence of mass or hydronephrosis. Adrenal Glands: Unremarkable. Aorta: The aorta and proximal iliac vessels are grossly unremarkable without aneurysmal dilation. Bowel/Mesentery: There are several loops of nondilated air-containing small bowel with several small air-fluid levels. Contrast is noted in the small bowel as well. No focal inflammatory change is iden tified. There is no free air or fluid. The cecum and sigmoid colon have a normal configuration. Abdominal Wall: Intact. Retroperitoneum: No evidence of adenopathy in the retrocrural, para-aortic, or deep pelvic regions. Bladder: Contours are smooth. Reproductive Organs: No abnormal masses or calcifications seen. Inguinal: The inguinal region is unremarkable without evidence of adenopathy. Bony Structures: Osteopenia, degenerative change and minimal scoliosis are present. CONCLUSION: 1. Mildly nonspecific, nonobstructive bowel gas pattern which may represent a mild ileus and/or sd roenteritis. 2. Small bilateral pleural effusions. 3. Status post cholecystectomy. Electronically signed by: Roel Snow MD Board Certified Radiologist 03/14/2018 10:32 PM EST
[2018-03-15] MEDS: Sucralfate Liq 1 GM/10 ML UDC PO SCH ×2 (07:39→15:19)
[2018-03-15] MEDS: Thyroid 60 MG Tablet PO SCH ×2 (07:40→08:52)
[2018-03-15 08:35] LABS: Hematocrit 25.1 % (39.0-51.0); Hemoglobin 8.4 gm/dL (13.0-17.0); Mean Corpuscular HGB Conc 33.6 % (32.0-36.0); Mean Corpuscular Hemoglobin 31.9 pg (27.0-34.0); Mean Corpuscular Volume 94.9 fL (80.0-100.0); Mean Platelet Volume 7.4 fL (7.0-11.0); Platelet Count 153 th/mm3 (150-450); Red Blood Count 2.65 mil/mm3 (4.50-5.90); Red Cell Distribution Width 22.5 % (11.6-17.2); White Blood Count 7.7 th/mm3 (4.0-11.0)
[2018-03-15] MEDS: Budesonide-Formoterol 160/4.5 MCG 6 GM Inhaler INH SCH (08:53)
[2018-03-15] MEDS: Furosemide 40 MG Tablet PO SCH (08:54)
[2018-03-15] MEDS: amLODIPine 5 MG Tablet PO SCH (08:55)
[2018-03-15] MEDS: Senna/Docusate Sodium 8.6/50 MG Tablet PO SCH ×2 (08:57→09:03)
[2018-03-15] MEDS ORDERED: Polyethylene Glycol 3350 17 GM Packet PO ONE (09:04)
[2018-03-15 09:06] VITALS: O2SAT 96
--- NOTE | 2018-03-15 09:08 | P.DCO ---
- Physical Therapy Order: Evaluate and treat - Home Health Nursing Order: Signs/symptoms of disease process - [place] Worker Order: To provide: Long range planning - Case Management Consult Case Management Consult-Home Health: Yes - Certification I have seen patient Bruce Gallagher on 03/15/18. My clinical findings support the need for the requested home health care services because: Gi bleed s/p fall ,monitor B/P,and hgb Deconditioned with increased weakness, High risk of falls I certify that my clinical findings support that this patient is homebound because: Unsteady gait/balance
--- NOTE | 2018-03-15 11:30 | P.DS ---
Date of admission: 03/10/18 10:37 Primary care physician: Raudel Vazquez DO Brief History from admission: 87 y/o male presents after he had a trip and fall on a curb when he was trying to go to [facility] for blood work for dizzy spells with black stools. He states he is on Eliquis for afib. He is forgetful, he sustained laceration to head, that was sutured in ER. He denies any active dizziness but does note that he has been having black stools. HGB was 7.1. DS: Summary Hospital Course: 87 y/o male presents after he had a trip and fall on a curb when he was trying to go to [facility] for blood work for dizzy spells with black stools. He is o Eliquis for Sfib,that was held and GI consulted. he was noted to have HGB of 7.1 , received 1 unit on admission and another unit on 03/14/18. Creatinine 1.6 on admission this is his baseline. He had EGD on 03/11/18 with esophagitis, jessica , and large nodule in the duodenal buld, multiple biopsies pending. Gi ok to restart anticoagulation. CT of abdomen pelvis on 03/14/18, patient given laxative. HGB 8.3 on day of discharge, he will be sent home with [facility]. - Time Spent with Patient Total time spent providing and/or coordinating discharge services: Less than 30 minutes - Quality: AMI Clinical Trial Participant: No - Quality: Stroke Symptom Onset Unknown: No - Quality: VTE Deep Vein Thrombosis/Pulmonary Embolism Present on Admission: No Exam Vital signs: Vital Signs 03/14/18 12:00 03/14/18 16:00 03/14/18 20:00 Temperature 97.5 F L 98.4 F 97.9 F Pulse Rate 51 L 52 L 65 Respiratory Rate 20 12 18 Blood Pressure 146/65 H 175/77 H 122/76 Pulse Oximetry 99 97 96 03/14/18 23:12 03/14/18 23:15 03/14/18 23:30 Temperature 97.9 F 97.7 F 97.9 F Pulse Rate 65 52 L 53 L Respiratory Rate 18 18 18 Blood Pressure 122/76 140/60 155/60 H Pulse Oximetry 96 98 99 03/15/18 00:00 03/15/18 04:00 03/15/18 08:00 Temperature 97.7 F 96.9 F L Pulse Rate 53 L 50 L 54 L Respiratory Rate 18 20 Blood Pressure 133/82 136/63 Pulse Oximetry 94 L 96 03/15/18 08:15 Temperature Pulse Rate 59 L Respiratory Rate Blood Pressure Pulse Oximetry Intake & Output 03/14/18 03/15/18 03/15/18 18:59 06:59 18:59 Intake Total 720 / 720 410 / 410 240 / 240 Output Total 700 / 700 2000 / 1999 300 / 300 Balance 20 / -1590 / -1590 -60 / -60 Weight 101.3 kg Intake: Oral 720 / 720 0 / 0 240 / 240 Other Rbc As-3 Leukoreduced Unit [id number] Intake (Blood Product) Amt 400 / 400 Rbc As-3 Leukoreduced Unit 400 / 400 [id number] Output: Urine 700 / 700 2000 / 2000 300 / 300 Other: Other Intake Source Rbc As-3 Leukoreduced Unit Saline Solution [id number] Date of Last Bowel Movement 03/12/18 03/12/18 03/12/18 - Constitutional no acute distress - Routine HEENT Exam ENT: Present: mucous membranes moist - Routine Respiratory Exam Present: CTA bilaterally - Routine Cardiovascular Exam Present: S1, S2 - Routine Abdominal Exam Present: firm - Routine Extremities Exam Present: edema - Routine Skin Exam Present: dry, warm Comments: laceration over left eye - Routine Neurological Exam Present: alert forgetful Results Procedures completed during hospitalization: EGD on 03/11/18 Completed studies during hospitalization: Pending at discharge 03/11/18 13:32 Surgical [PTH] Routine Labs on day of discharge: Labs from last 24 hours 03/15/18 03/14/18 03/14/18 08:20 18:39 13:32 WBC 7.7 10.1 RBC 2.65 L 2.52 L Hgb 8.4 L 8.1 L Hct 25.1 L 24.4 L MCV 94.9 97.0 MCH 31.9 32.0 MCHC 33.6 33.0 RDW 22.5 H 22.9 H Plt Count 153 174 MPV 7.4 7.4 Blood Type A Positive Blood Type Recheck Not needed Antibody Screen Negative MTS Gel Crossmatch See Detail 03/10/18 12:47 WBC RBC Hgb Hct MCV MCH MCHC RDW Plt Count MPV Blood Type Blood Type Recheck Antibody Screen MTS Gel Crossmatch See Detail - Impressions ITS Impressions Chest X-Ray 03/10/18 09:06 CONCLUSION: No acute disease Cervical Spine CT 03/10/18 09:07 CONCLUSION: 1. No fracture or subluxation Head CT 03/10/18 09:07 CONCLUSION: No acute intracranial findings . Pelvis X-Ray 03/10/18 09:07 CONCLUSION: No definite acute bony injury Elbow X-Ray 03/10/18 09:15 CONCLUSION: 1. No acute fracture, dislocation or elbow joint effusion. 2. Olecranon spurring. 3. Degenerative changes involving the right elbow joint. Abdomen/Pelvis CT 03/14/18 00:00 CONCLUSION: 1. Mildly nonspecific, nonobstructive bowel gas pattern which may represent a mild ileus and/or gastroenteritis. 2. Small bilateral pleural effusions. 3. Status post cholecystectomy. Discharge Plan - Discharge Disposition Patient Disposition: Disch W/Home Health Service - Discharge Condition Condition: Good - Discharge Order Discharge Orders: Discharge Order (Routine); Ordered 03/15/18 Ordered By: Liza Vila ED Use Only Admit Order (Routine); Ordered 03/10/18 Ordered By: Lizzie Alatorre - Discharge Details Discharge Comment: DC home with [facility] - Physicians Team Primary Care Provider: Raudel Vazquez Attending Provider: Raudel Vazquez Other Providers: Jim Rodriguez DO ; Austin Castaneda MD
--- NOTE | 2018-03-15 12:54 | XR ---
EXAM DATE: 03/15/2018 12:43 PM EST AGE/SEX: 87 years / Male INDICATIONS: Fall, right shoulder pain. CLINICAL DATA: This is the patient's subsequent encounter. Patient reports that signs and symptoms h ave been present for 4 - 6 days and indicates a pain score of 8/10. MEDICAL/SURGICAL HISTORY: None. None. COMPARISON: No prior exams available for comparison. FINDINGS: Moderate hypertrophic changes of the acromioclavicular joint. No fracture or dislocation. Bone densit y is diminished. Sternotomy wires are seen. CONCLUSION: Degenerative changes of the AC joint. Electronically signed by: Salas Ruiz MD Board Certified Radiologist 03/15/2018 12:53 PM EST
[2018-03-15 18:04] VITALS: BP 161/71; RESP 21; TEMP 97.7
[2018-03-15 18:18] VITALS: PULSE 63
== END 2018-03-15 18:34 | disposition home health service (06) | DRG 378 ==
LOC: PHED 08:34 → PHEDA 10:37 → PH3 21:03
PROVIDERS: ADMIT Family Medicine; ATTEND Family Medicine
PROC: PANENDO (2018-03-11 10:15)
CPT/HCPCS: 12011; 36430; 70450; 71010; 71045; 72125; 72170; 73030; 73080; 74176; 76937; 80048; 80053; 83520; 83735; 83880; 85025; 85027; 85610; 85730; 86850; 86900; 86901; 86923; 88305; 88312; 93005; 97162; 99285; C9113; J2704; J7050; P9016; Q9963